=== PATIENT | male | born 1975 | race Caucasian/White ===

== ENCOUNTER 2019-07-04 00:20 | Day surgery (SDC) | payer OTHER, SELFPAY ==
[2019-07-01 10:09] VITALS: BMI 35.9
--- NOTE | 2019-07-04 07:17 | P.HP_ITS ---
History of Present Illness History of Present Illness Consent: Risks, benefits, and alternatives have been discussed and questions answered. Patient agrees to proceed with procedure. Chief complaint: Neoplasm Screening/ Fam Hx Colon Ca Narrative: Bryson Martínez is a 44 year old W male referred for screening colonoscopy secondary to family history of colon cancer in mother diagnosed in her 50s. Patient states he had a colonoscopy about 10 years ago for some rectal bleeding. Patient presently is asymptomatic. [facility] Past Medical History Medical History (Updated 05/27/19 @ 12:29 by Hayden Oconnor MD) Family history of colon cancer in mother Family hx of prostate cancer Hyperlipidemia Social History Social History Smoking status: Never smoker Second hand tobacco smoke exposure: No Alcohol intake: current Meds Home Medications and Allergies Home Medications Medication Instructions Recorded Confirmed Type No Home Medications 07/01/19 07/01/19 History Allergies Allergy/AdvReac Type Severity Reaction Status Date / Time No Known Allergies Allergy Verified 07/04/19 07:01 Exam Const: Orientation/consciousness: patient oriented x3 Resp: Auscultation: clear to auscultation bilaterally Cardio: Rate: regular rate Rhythm: regular rhythm Heart sounds: no murmurs GI: GI Palp: Yes Soft to palpation, No Tenderness to palpation present (GI), Yes No hepatosplenomegaly present and No Palpable mass present Auscultation: normal bowel sounds Neuro: General: patient oriented x3 and no focal motor deficits Extrem: General: no pedal edema Assessment and Plan Additional Plan Screening colonoscopy secondary mother having colon cancer in her 50s
[2019-07-04 07:22] VITALS: BP 155/108; PULSE 80; RESP 16; TEMP 36.6; O2SAT 96
[2019-07-04] MEDS: LACTATED RINGERS 1,000 ML 150 ML IV CONT (07:22)
--- NOTE | 2019-07-04 07:39 | WPDANESEPPF ---
Anes - Initial Pre Proc Eval Procedure: Operation Date: 07/04/19 08:30 Proposed Procedures p Screening Colonoscopy - Alexis Rosenberg MD Date/Time: 07/04/19 07:39 Surgeon: Alexis Rosenberg MD Pre Op Diagnosis: Neoplasm Screening/ Fam Hx Colon Ca Patient Data Age: 44 Gender: M Height: 5 ft 10 in Weight: 115.1 kg Last Vital Signs Temp 36.6 C 07/04/19 07:22 Pulse 80 07/04/19 07:22 Resp 16 07/04/19 07:22 BP 155/108 H 07/04/19 07:22 Pulse Ox 96 07/04/19 07:22 Allergies Allergy/AdvReac Type Severity Reaction Status Date / Time No Known Allergies Allergy Verified 07/04/19 07:01 Home Medications Medication Instructions Recorded Confirmed Type No Home Medications 07/01/19 07/01/19 History Patient hx anesthesia problems: none Family hx anesthesia problems: none PMFSH Past Medical History Medical History Family history of colon cancer in mother Family hx of prostate cancer Hyperlipidemia Family History Family History Sibling Patient's sister is in good health Mother Carcinoma of colon Father Malignant neoplasm of prostate Social History Social History Smoking status: Never smoker Second hand tobacco smoke exposure: No Alcohol intake: current Anes - Eval Final PreProcedure Day of Procedure 07/04/19 07:39 Patient weight: obese Heart: regular rate and rhythm Lungs: clear to auscultation Airway: Mallampati scale class 1 Neurological: alert and oriented Last oral intake: >/= 8 hours ASA classification: II Emergent: no Anesthetic plan: proceed Anesthesia type and monitoring: general GIVS and standard monitoring Informed Consent: The patient's anesthetic plan and its attendant risks and benefits were discussed with the patient/family/POA. Questions were solicited and answers provided to the satisfaction of the patient/family/POA.
[2019-07-04] MEDS: SODIUM CHLORIDE 0.9% 10 ML XX (09:38)
[2019-07-04 09:39] VITALS: BP 125/80; PULSE 76; RESP 20; O2SAT 96
[2019-07-04 09:49] VITALS: BP 131/88; PULSE 73; RESP 22; O2SAT 97
[2019-07-04 09:59] VITALS: BP 136/79; PULSE 71; RESP 20; O2SAT 98
== END 2019-07-04 10:21 | disposition home or self-care (01) ==
PROVIDERS: PCP Internal Medicine; Visit Provider Internal Medicine Gastroenterology
PROC: 0DJD8ZZ Inspection of Lower Intestinal Tract, Via Natural or Artificial Opening Endoscopic (ICD-10-PCS; CPT 45378; principal; 2019-07-04 08:30)
DX: Z12.11 Encounter for screening for malignant neoplasm of colon (principal); D12.2 Benign neoplasm of ascending colon; K64.8 Other hemorrhoids; E78.5 Hyperlipidemia, unspecified; E66.9 Obesity, unspecified; Z68.36 Body mass index [BMI] 36.0-36.9, adult
CPT/HCPCS: 45385; 45381; 88305; J2704; J7120

== ENCOUNTER 2021-07-16 08:14 | Outpatient (CLI) | payer OTHER, SELFPAY ==
--- NOTE | 2021-07-23 12:50 | WPDSLEEPSTUD ---
Sleep Study Date of Study: 07/16/21 Ordering Provider: Antoni Tang DO Interpreting Physician: Jeannie Belle DO Sleep Study Type: Split Polysomnogram Height: 1.78 m Weight: 131.542 kg Body Mass Index: 41.5 Neck Circumference (inches): 19 [place]: 18 Reason for Sleep Study Witnessed apneas, loud snoring Sleep History The patient is a 46-year-old male with hypertension that had a sleep study ordered by his primary care physician for witnessed apneas. The patient had an [place] Sleepiness Scale score of 20/24. The patient constantly awakens from sleep short of breath. He rarely awakens at night with heartburn, belching or cough. He constantly snores loud enough that others complain. He constantly has trouble sleeping when he has a cold. He constantly wakes up gasping for air throughout the night. He constantly has breathing problems at night observed by others. She he rarely sweats excessively at night. He occasionally notices heart palpitations or irregular heartbeats during the night. He frequently falls asleep during the day and frequently falls asleep while driving. He rarely has trouble at work due to sleepiness. He denies sleep paralysis and cataplexy. He rarely experiences vivid dreamlike scenes upon awakening or falling asleep. He denies having nightmares. He rarely feels sad or depressed. He rarely has anxiety. He occasionally notices parts of his body jerk. He denies kicking during the night. He denies having crawling and aching feelings in his legs as well as leg pain during the night. He rarely grinds his teeth during sleep rarely awakens with a morning jaw pain. He is frequently bothered by pain during the day but never awakened by pain during the night. He occasionally wakes up feeling stiff in the morning. He rarely wakes up with sore achy muscles. He frequently wakes up with pain in the neck, spine and other joints. He goes to bed at 2:00 a.m. on weekdays and 4:00 a.m. on the weekends. He can fall asleep immediately. He wakes up a couple times throughout the night to change positions and then he is able to fall back asleep immediately. He wakes up at 7:00 a.m. on the weekdays and 11:00 a.m. on the weekends. He typically gets 5 hours of sleep per night. He will stay in bed for 30 minutes after waking up in the morning. He currently lives with his and children. His work does require him to have split shifts or rotating shifts. He does not consume any caffeinated beverages within 2 hours of bedtime. He does not engage in physical exercise before bedtime. He will watch television before falling asleep. He will take naps in afternoon or the evening but they are not refreshing. He consumes 3 caffeinated beverages per day. He will drink alcohol socially. He denies tobacco and recreational drug use. [facility] Past Medical History Medical History (Updated 07/23/21 @ 13:20 by Jeannie Belle DO) Benign essential hypertension Family history of colon cancer in mother Family hx of prostate cancer Hyperlipidemia Family History Family History Sibling Patient's sister is in good health Mother Carcinoma of colon Father Malignant neoplasm of prostate Social History Social History Smoking status: Never smoker Second hand tobacco smoke exposure: No Alcohol intake: current Drinks per week: 6 Substance use: never Substance use type: does not use Spiritual care concerns: No Medications Home Medications Medication Instructions Recorded Confirmed Type amlodipine 5 mg tablet 5 mg PO DAILY #30 tablet 06/18/21 07/22/21 Rx losartan 100 1 tablet PO DAILY #30 tablet 06/18/21 07/22/21 Rx mg-hydrochlorothiazide 25 mg tablet Sleep Procedure This [facility] performed [facility] [employer] multiple channel system including EOG, EEG, submental EMG, EKG, nasal a
[2021-07-23 13:03] VITALS: BMI 41.5
== END 2021-07-17 05:38 | disposition home or self-care (01) ==
LOC: ANHCSM 08:15
PROVIDERS: PCP Family Medicine; Visit Provider Family Medicine
DX: G47.30 Sleep apnea, unspecified (principal); G47.39 Other sleep apnea
CPT/HCPCS: 95811

== ENCOUNTER 2021-07-26 00:47 | Day surgery (SDC) | payer OTHER, SELFPAY ==
[2021-07-22 10:59] VITALS: BMI 41.7
--- NOTE | 2021-07-25 16:29 | PM.HPGS ---
History of Present Illness History of Present Illness Consent: Risks, benefits, and alternatives have been discussed and questions answered. Patient agrees to proceed with procedure. Chief complaint: family hx of colon ca, hx of colon polyps Narrative: Bryson Martínez is a 46 year old male with a family history of colon cancer in his mother. He himself had removal of a 2.5 cm sessile polyp just over 2 years ago. Review of Systems Review of Systems: All systems reviewed & are unremarkable except as noted in HPI and below PMFSH Past Medical History Medical History Benign essential hypertension Family history of colon cancer in mother Family hx of prostate cancer Hyperlipidemia Mixed sleep apnea Family History Family History Sibling Patient's sister is in good health Mother Carcinoma of colon Father Malignant neoplasm of prostate Social History Social History Smoking status: Never smoker Second hand tobacco smoke exposure: No Alcohol intake: current Drinks per week: 6 Substance use: never Substance use type: does not use Living arrangements: with family Spiritual care concerns: No Meds Home Medications and Allergies Home Medications Medication Instructions Recorded Confirmed Type amlodipine 5 mg tablet 5 mg PO DAILY #30 tablet 06/18/21 07/26/21 Rx losartan 100 1 tablet PO DAILY #30 tablet 06/18/21 07/26/21 Rx mg-hydrochlorothiazide 25 mg tablet Allergies Allergy/AdvReac Type Severity Reaction Status Date / Time No Known Allergies Allergy Verified 07/26/21 11:08 Exam Resp: Auscultation: clear to auscultation bilaterally Cardio: Rate: regular rate Rhythm: regular rhythm GI: GI Palp: Yes Soft to palpation and No Tenderness to palpation present (GI) Assessment and Plan Assessment and plan (1) Colon cancer screening: Code(s): Z12.11 - Encounter for screening for malignant neoplasm of colon Status: Acute Assessment and Plan: Colonoscopy with possible biopsy or polypectomy or cautery or injection of substances.
[2021-07-26 11:11] VITALS: BP 149/103; PULSE 86; RESP 18; TEMP 36.3; O2SAT 100
[2021-07-26] MEDS: LACTATED RINGERS 1,000 ML 150 ML IV CONT (11:19)
--- NOTE | 2021-07-26 11:58 | P.PNAN_ITS ---
Anes - Initial Pre Proc Eval Procedure: Operation Date: 07/26/21 12:30 Proposed Procedures p Screening Colonoscopy - Conor Mora MD Date/Time: 07/26/21 11:58 Surgeon: Conor Mora MD Pre Op Diagnosis: family hx of colon ca, hx of colon polyps Patient Data Age: 46 Gender: M Height: 1.78 m Weight: 123.7 kg Last Vital Signs Temp 36.3 C L 07/26/21 11:11 Pulse 86 07/26/21 11:11 Resp 18 07/26/21 11:11 BP 149/103 H 07/26/21 11:11 Pulse Ox 100 07/26/21 11:11 Allergies Allergy/AdvReac Type Severity Reaction Status Date / Time No Known Allergies Allergy Verified 07/26/21 11:08 Home Medications Medication Instructions Recorded Confirmed Type amlodipine 5 mg tablet 5 mg PO DAILY #30 tablet 06/18/21 07/26/21 Rx losartan 100 1 tablet PO DAILY #30 tablet 06/18/21 07/26/21 Rx mg-hydrochlorothiazide 25 mg tablet Patient hx anesthesia problems: none Family hx anesthesia problems: none Results Review: All pre-operative results and documents have been reviewed as part of the pre-operative evaluation. [facility] Past Medical History Medical History Benign essential hypertension Family history of colon cancer in mother Family hx of prostate cancer Hyperlipidemia Mixed sleep apnea Family History Family History Sibling Patient's sister is in good health Mother Carcinoma of colon Father Malignant neoplasm of prostate Social History Social History Smoking status: Never smoker Second hand tobacco smoke exposure: No Alcohol intake: current Drinks per week: 6 Substance use: never Substance use type: does not use Living arrangements: with family Spiritual care concerns: No Anes - Eval Final PreProcedure Day of Procedure 07/26/21 11:58 Patient weight: obese Heart: regular rate and rhythm Lungs: clear to auscultation Airway: Mallampati scale class II Neurological: alert and oriented Last oral intake: >/= 8 hours ASA classification: III Emergent: no Anesthetic plan: proceed Anesthesia type and monitoring: general GIVS and standard monitoring Results Review: All pre-operative results and documents have been reviewed as part of the pre-operative evaluation. Informed Consent: The patient's anesthetic plan and its attendant risks and be nefits were discussed with the patient/family/POA. Questions were solicited and answers provided to the satisfaction of the patient/family/POA.
[2021-07-26 12:24] VITALS: BP 116/84; PULSE 93; RESP 27; O2SAT 100
[2021-07-26 12:34] VITALS: BP 133/97; PULSE 85; RESP 19; O2SAT 100
[2021-07-26 12:44] VITALS: BP 136/97; PULSE 80; RESP 20; O2SAT 100
== END 2021-07-26 13:00 | disposition home or self-care (01) ==
PROVIDERS: PCP Family Medicine; Visit Provider Internal Medicine Gastroenterology
PROC: 0DJD8ZZ Inspection of Lower Intestinal Tract, Via Natural or Artificial Opening Endoscopic (ICD-10-PCS; CPT 45378; principal; 2021-07-26 12:30)
DX: Z09 Encounter for follow-up examination after completed treatment for conditions other than malignant neoplasm (principal); D12.8 Benign neoplasm of rectum; Z80.0 Family history of malignant neoplasm of digestive organs; I10 Essential (primary) hypertension; E78.5 Hyperlipidemia, unspecified; G47.33 Obstructive sleep apnea (adult) (pediatric); E66.9 Obesity, unspecified; Z68.39 Body mass index [BMI] 39.0-39.9, adult
CPT/HCPCS: 45380; 88305; J2704; J7120

== ENCOUNTER 2023-06-11 08:40 | Outpatient (CLI) | payer OTHER, SELFPAY ==
[2023-06-11 17:34] LABS: Alanine Aminotransferase 57 U/L (6-50); Albumin Level 4.4 g/dL (3.5-5.1); Alkaline Phosphatase 62 U/L (38-126); Anion Gap 10 mmol/L (8-16); Aspartate Amino Transferase 57 U/L (17-59); Bilirubin,Total 0.9 mg/dL (0.2-1.3); Blood Urea Nitrogen 18 mg/dL (9-20); Calcium 9.4 mg/dL (8.4-10.2); Carbon Dioxide 28 mmol/L (22-30); Chloride 101 mmol/L (98-107); Cholesterol 146 mg/dL (0-200); Estimated Glomerular Filt Rate > 60; Glucose 82 mg/dL (65-110); HDL Direct 38 mg/dL; Potassium 3.6 mmol/L (3.4-5.0); Sodium 139 mmol/L (137-145); Triglycerides 90 mg/dL (<150)
[2023-06-11 17:48] LABS: LDL Cholesterol Direct 89 mg/dL
[2023-06-11 18:04] LABS: Prostate Specific Antigen 0.9 ng/mL (< OR = 4.0)
== END 2023-06-11 08:41 | disposition home or self-care (01) ==
LOC: ANHGOSHLAB 08:41
PROVIDERS: PCP Family Medicine; Visit Provider Family Medicine
DX: Z12.5 Encounter for screening for malignant neoplasm of prostate (principal); Z13.220 Encounter for screening for lipoid disorders; Z13.228 Encounter for screening for other metabolic disorders
CPT/HCPCS: 36415; 80053; 80061; 84153; G0103

== ENCOUNTER 2024-09-02 00:57 | Day surgery (SDC) | payer OTHER, SELFPAY ==
[2024-08-22 14:03] VITALS: BMI 41.7
--- NOTE | 2024-09-01 13:53 | WPDANESEPPF ---
Anes - Initial Pre Proc Eval Procedure: Operation Date: 09/02/24 11:30 Proposed Procedures p Screening Colonoscopy - Gregorio Wang MD Date/Time: 09/01/24 13:53 Surgeon: Gregorio Wang MD Pre Op Diagnosis: screening colon Patient Data Age: 49 Gender: M Height: 1.78 m Weight: 132 kg Allergies Allergy/AdvReac Type Severity Reaction Status Date / Time No Known Allergies Allergy Verified 09/02/24 10:11 Home Medications ?Medication ?Instructions ?Recorded ?Confirmed ?Type semaglutide (weight loss) 1.7 1.7 mg (0.75 mL) subcut WEEKLY #3 05/26/24 08/22/24 Rx mg/0.75 mL subcutaneous pen mL injector (Wegovy) amlodipine 10 mg tablet 10 mg PO DAILY #90 tabs 05/30/24 09/02/24 Rx losartan 100 1 tablet PO DAILY #90 tabs 05/30/24 09/02/24 Rx mg-hydrochlorothiazide 25 mg tablet metoprolol succinate 50 mg 50 mg PO DAILY #90 tabs 05/30/24 09/02/24 Rx tablet,extended release 24 hr semaglutide (weight loss) 2.4 2.4 mg (0.75 mL) subcut WEEKLY #3 05/30/24 08/22/24 Rx mg/0.75 mL subcutaneous pen mL injector (Wegovy) Patient hx anesthesia problems: none Family hx anesthesia problems: none Results Review: All pre-operative results and documents have been reviewed as part of the pre-operative evaluation. [facility] Past Medical History Medical History Mixed sleep apnea Hyperlipidemia Family history of colon cancer in mother Family hx of prostate cancer Benign essential hypertension Family History Family History Sibling Patient's sister is in good health Mother Carcinoma of colon Father Malignant neoplasm of prostate Social History Social History Smoking status: Never smoker Second hand tobacco smoke exposure: No Alcohol intake: never Drinks per week: 6 Substance use: never Substance use type: does not use Lack of Transportation: No Lack of Food: Never True Current Housing: I Have Housing Concerned About Future Housing: No Difficulty Paying Gas/Electric Bills: No Difficulty Paying for Meds: No Currently Unemployed: No Education: Bachelor's Degree Difficulty w/ Childcare or Family Care: No Living arrangements: with family Spiritual care concerns: No Anes - Eval Final PreProcedure Day of Procedure 09/01/24 13:53 Patient weight: morbidly obese Heart: regular rate and rhythm Lungs: clear to auscultation Airway: Mallampati scale class III Neurological: alert and oriented Last oral intake: >/= 8 hours ASA classification: III Emergent: no Anesthetic plan: proceed Anesthesia type and monitoring: general GIVS and standard monitoring Results Review: All pre-operative results and documents have been reviewed as part of the pre-operative evaluation. Informed Consent: The patient's anesthetic plan and its attendant risks and benefits were discussed with the patient/family/POA. Questions were solicited and answers provided to the satisfaction of the patient/family/POA.
--- OUTSIDE RECORDS SUMMARY | 2024-09-02 01:00 | XMS_ITS | Referral Summary ---
Author Organization [facility] Address [address] [place] [id number] Care Team Providers Care Tree Trimmer Name Role Phone ReddyAntoni gardner Primary Care Provider [phone] Allergies No known active allergies Social History Tobacco Use Types Packs/Day Years Used Date Smoking Tobacco: Never Assessed Personal Safety Answer Date Recorded Getting School Help Needed Not on file 08/15 Sex and Gender Information Value Date Recorded Sex Assigned at Not on file Legal Sex Male 7:13 PM [employer] Gender Identity Not on file Sexual Orientation Not on file Plan of Treatment Not on file Insurance [facility] Care Teams Tree Trimmer Relationship Specialty Start Date End Date Antoni Tang DO PCP - General Family Medicine 08/06/21
--- OUTSIDE RECORDS SUMMARY | 2024-09-02 01:00 | XMS_ITS | Clinical Summary ---
Author Organization [facility] Address [address] [place] [address] Phone Care Team Providers Care Scalp Treatment Specialist Name Role Phone Antoni Tang DO Primary Care Provider [phone] Allergies No known active allergies Medications amLODIPine (NORVASC) 10 mg tablet Take 10 mg by mouth daily. Active metoprolol tartrate (LOPRESSOR) 50 mg tablet Take 50 mg by mouth daily. Active losartan (COZAAR) 25 mg tablet Take 25 mg by mouth daily. Active ondansetron (ZOFRAN ODT) 4 mg Tablet, Rapid Dissolve Take 1 Tablet (4 mg) by mouth every 8 hours as needed for Nausea/Emesis . Dissolve tablet on top of tongue, then swallow with saliva. 8 Tablet 07/06/2024 Active Encounters Date Type Department Care Team Description 08/30/2024 External Device Data [facility] ABSTRACTION Provider, Abstract 08/09/2024 External Device Data [facility] ABSTRACTION Provider, Abstract 08/09/2024 External Device Data [facility] ABSTRACTION Provider, Abstract 08/08/2024 External Device Data [facility]STRACTION Provider, Abstract 08/03/2024 External Device Data [facility] ABSTRACTION Provider, Abstract 07/12/2024 External Device Data [facility] ABSTRACTION Provider, Abstract 07/12/2024 External Device Data [facility]STRACTION Provider, Abstract 07/12/2024 External Device Data [facility] ABSTRACTION Provider, Abstract 07/06/2024 5:37 AM LOADER OPERATOR/GROUND LEADER - 07/06/2024 10:27 AM [facility] Emergency [facility] Emergency Department [address] [place] [address] Siva Terrazas MD Acute gastritis without hemorrhage, unspecified gastritis type (Primary Dx) Discharge Disposition: Home or Self Care 07/06/2024 Travel 07/05/2024 External Device Data [facility] ABSTRACTION Provider, Abstract 07/05/2024 External Device Data [facility] ABSTRACTION Provider, Abstract 06/23/2024 External Device Data [facility] ABSTRACTION Provider, Abstract 06/14/2024 External Device Data [facility] ABSTRACTION Provider, Abstract 06/07/2024 External Device Data [facility] ABSTRACTION Provider, Abstract from Last 3 Months Social History Tobacco Use Types Packs/Day Years Used Date Smoking Tobacco: Never Tobacco Cessation:Counseling Given: Not Answered Alcohol Use Standard Drinks/Week Comments Yes 0 (1 standard drink = 0.6 oz pur e alcohol) ocassionally Feeling Safe Answer Date Recorded Are you in a relationship wi th someone who hurts you emotionally and/or physically? No 07/06/2024 Sex and Gender Information Value Date Recorded Sex Assigned at Not on file Legal Sex Male 5:04 AM LOADER OPERATOR/GROUND LEADER Gender Identity Not on file Sexual Orientation Not on file Last Filed Vital Signs Vital Sign Reading Time Taken Comments Blood Pressure 127/86 07/06/2024 8:42 AM LOADER OPERATOR/GROUND LEADER Pulse 81 07/06/2024 8:42 AM LOADER OPERATOR/GROUND LEADER Temperature 35.8 C (96.5 F) 07/06/2024 5:09 AM LOADER OPERATOR/GROUND LEADER Respiratory Rate 16 07/06/2024 5:09 AM LOADER OPERATOR/GROUND LEADER Oxygen Saturation 98% 07/06/2024 8:42 AM LOADER OPERATOR/GROUND LEADER Inhaled Oxygen Concentration - - Weight 136.1 kg (300 lb) 07/06/2024 5:09 AM LOADER OPERATOR/GROUND LEADER Height 180.3 cm (5' 11 ) 07/06/2024 5:09 AM LOADER OPERATOR/GROUND LEADER Body Mass Index 41.84 07/06/2024 5:09 AM LOADER OPERATOR/GROUND LEADER Plan of Treatment Health Maintenance Due Date Last Done Comments Pre-Diabetes and Diabetes Screening 1977 DTAP/TDAP/TD VACCINES (1 - Tdap) 01/07/1996 HEPATITIS B VACCINES (1 of 3 - 19+ 3-dose series) 12/1995 COLORECTAL SCREENING 2022 Colorectal Cancer Screening 2022 FIT-DNA Q 3 years 2022 FIT/FOBT Q 1 year 2022 Flex Sig/CT Colonography Q 5 years 2022 INFLUENZA VACCINE (#1) 2023 Preventative Visit- Commercial 06/01/2024 Procedures Procedure Name Priority Date/Time Associated Diagnosis Comments EXTRA TUBE (URINE BARRAGAN) Stat 07/06/2024 8:25 AM LOADER OPERATOR/GROUND LEADER URINALYSIS W/REFLEX MICROSCOPIC Stat 07/06/2024 8:25 AM LOADER OPERATOR/GROUND LEADER CT ABDOMEN PELVIS W CONTRAST Stat 07/06/2024 8:12 AM LOADER OPERATOR/GROUND LEADER EKG 12-LEAD Stat 07/06/2024 6:08 AM LOADER OPERATOR/GROUND LEADER MAGNESIUM LEVEL Stat 07/06/2024 5:53 AM LOADER OPERATOR/GROUND LEADER LIPASE Stat 07/06/2024 5:53 AM LOADER OPERATOR/GROUND LEADER COMPREHENSIVE METABOLIC PANEL Stat 07/06/2024 5:53 AM LOADER OPERATOR/GROUND LEADER CBC WITH DIFFERENTIAL Stat 07/06/2024 5:53 AM LOADER OPERATOR/GROUND LEADER from Last 3 Months Results * EXTRA TUBE (URINE BARRAGAN) (07/06/2024 8:25 AM LOADER OPERATOR/GROUND LEADER) Urine URINE SPECIMEN OBTAINED BY CLEAN CATCH PROCEDURE / Unknown Collection / Unknown 07/06/2024 8:25 AM LOADER OPERATOR/GROUND LEADER 07/06/2024 8:29 AM LOADER OPERATOR/GROUND LEADER us Siva Terrazas MD URINE ORDERABLES Final Res ult [facility] CLIA# [id number] [place] [address] * URINALYSIS WITH REFLEX MICROSCOPIC (07/06/2024 8:25 AM LOADER OPERATOR/GROUND LEADER) COLOR UA Yellow Pale to Dark Yellow 07/06/2024 8:35 AM LOADER OPERATOR/GROUND LEADER [facility] CLARITY UA Clear Clear 07/06/2024 8:35 AM LOADER OPERATOR/GROUND LEADER [facility] SPECIFIC GRAVITY UA 1.027 1.003 - 1.035 07/06/2024 8:35 AM LOADER OPERATOR/GROUND LEADER [facility] PH UA 6.0 5.0 - 8.0 07/06/2024 8:35 AM LOADER OPERATOR/GROUND LEADER [facility] LEUKOCYTE ESTERASE UA Negative Negative 07/06/2024 8:35 AM LOADER OPERATOR/GROUND LEADER [facility] NITRITE UA Negative Negative 07/06/2024 8:35 AM LOADER OPERATOR/GROUND LEADER [facility] PROTEIN UA Negative Negative 07/06/2024 8:35 AM LOADER OPERATOR/GROUND LEADER [facility] GLUCOSE UA Negative Negative 07/06/2024 8:35 AM LOADER OPERATOR/GROUND LEADER [facility] KETONES UA Negative Negative 07/06/2024 8:35 AM LOADER OPERATOR/GROUND LEADER [facility] UROBILINOGEN UA Normal <2.0 mg/dL 8:35 AM [facility] BILIRUBIN UA Negative Negative 07/06/2024 8:35 AM [facility] BLOOD UA Negative Negative 07/06/2024 8:35 AM LOADER OPERATOR/GROUND LEADER [facility] Urine URINE SPECIMEN OBTAINED BY CLEAN CATCH PROCEDURE / Unknown Collection / Unknown 07/06/2024 8:25 AM LOADER OPERATOR/GROUND LEADER 07/06/2024 8:29 AM LOADER OPERATOR/GROUND LEADER Siva Terrazas MD URINE ORDERABLES Final Res ult [facility] CLIA# [id number] [place] [address] * CT ABDOMEN PELVIS W CONTRAST (07/06/2024 8:12 AM LOADER OPERATOR/GROUND LEADER) Anatomical Region Laterality Modality Abdomen Computed Tomogra y 07/06/2024 8:18 AM LOADER OPERATOR/GROUND LEADER Impressions 07/06/2024 8:28 AM LOADER OPERATOR/GROUND LEADER IMPRESSION: 1. Mild distal esophagitis and peripyloric gastritis without definite ulceration. 2. Hepatic steatosis. DICTATION LOCATION: Location 7 - [facility] Narrative 07/06/2024 8:28 AM LOADER OPERATOR/GROUND LEADER EXAMINATION: CT ABDOMEN PELVIS W CONTRAST DATE: 07/06/2024 8:12 AM HISTORY: Abdominal pain, acute, nonlocalized; See Reason for Exam TECHNIQUE: CT of the abdomen and pelvis was performed following the uneventful administration of contrast (IOPAMIDOL 76 % INTRAVENOUS SOLUTION (SINGLE USE VIAL) Given:75 mL) according to standard protocol. The examination was performed with the adjustment of mA according to the patient size and/or the use of Iterative Reconstruction Technique. COMPARISON: No prior study is available for comparison at the time of this dictation. FINDINGS: Lower chest: The lung bases are clear. The heart is not enlarged. Liver: Diffuse hepatic steatosis is present. -Focal liver lesions: No focal liver lesion. -Vasculature: Patent hepatic vasculature. Biliary: The gallbladder appears normal. There is no biliary duct dilatation. Spleen: Normal. Pancreas: Normal. Adrenals: Normal. Kidneys/: Normal. There is no hydronephrosis. Gastrointestinal: There is mild thickening and fat stranding surrounding the distal esophagus suggestive of esophagitis. The stomach also demonstrates wall thickening and fat stranding surrounding the pylorus compatible with gastritis. No definite ulceration is identified. There is no bowel wall thickening or dilatation. Vasculature: The aorta is normal in course and caliber without significant atherosclerosis. The aortic branch vessels are normal in course and caliber without significant atherosclerotic calcification. Pelvic structures: The urinary bladder is unremarkable. The visible reproductive structures are normal. Other: There is no free fluid. There is no free air. There is no abdominal lymphadenopathy. No suspicious bone lesion is seen. No acute fracture is identified. Procedure Note Mars Matthews MD - 07/06/2024 EXAMINATION: CT ABDOMEN PELVIS W CONTRAST DATE: 07/06/2024 8:12 AM HISTORY: Abdominal pain, acute, nonlocalized; See Reason for Exam TECHNIQUE: CT of the abdomen and pelvis was performed following the uneventful administration of contrast (IOPAMIDOL 76 % INTRAVENOUS SOLUTION (SINGLE USE VIAL) Given:75 mL) according to standard protocol. The examination was performed with the adjustment of mA according to the patient size and/or the use of Iterative Reconstruction Technique. COMPARISON: No prior study is available for comparison at the time of this dictation. FINDINGS: Lower chest: The lung bases are clear. The heart is not enlarged. Liver: Diffuse hepatic steatosis is present. -Focal liver lesions: No focal liver lesion. -Vasculature: Patent hepatic vasculature. Biliary: The gallbladder appears normal. There is no biliary duct dilatation. Spleen: Normal. Pancreas: Normal. Adrenals: Normal. Kidneys/: Normal. There is no hydronephrosis. Gastrointestinal: There is mild thickening and fat stranding surrounding the distal esophagus suggestive of esophagitis. The stomach also demonstrates wall thickening and fat stranding surrounding the pylorus compatible with gastritis. No definite ulceration is identified. There is no bowel wall thickening or dilatation. Vasculature: The aorta is normal in course and caliber without significant atherosclerosis. The aortic branch vessels are normal in course and caliber without significant atherosclerotic calcification. Pelvic structures: The urinary bladder is unremarkable. The visible reproductive structures are normal. Other: There is no free fluid. There is no free air. There is no abdominal lymphadenopathy. No suspicious bone lesion is seen. No acute fracture is identified. IMPRESSION: 1. Mild distal esophagitis and peripyloric gastritis without definite ulceration. 2. Hepatic steatosis. DICTATION LOCATION: [address] us Siva Terrazas MD CT ORDERABLES Final Resu lt * EKG 12-LEAD (07/06/2024 6:08 AM LOADER OPERATOR/GROUND LEADER) 07/06/2024 6:08 AM LOADER OPERATOR/GROUND LEADER Narrative INTERFACE SYSTEM - 07/06/2024 9:20 AM LOADER OPERATOR/[place] [address] Test Date: 2024-07-06 Pat Name: BRYSON MARTÍNEZ Department: 91 Room: [address] [place] [address] Gender: Male Neurology Physician: : [id number] Requested By: Order Number: [id number] Reading MD: Tip Bermeo Measurements Intervals [place] Rate: 89 P: 46 AL: 192 QRS: 27 QRSD: 92 T: 40 QT: 358 QTc: 435 Interpretive Statements Normal sinus rhythm Poor R wave progression Borderline ECG Compared to ECG 12/09/2023 15:01:21 No significant changes Electronically Signed On 07-06-2024 9:20:40 LOADER OPERATOR/GROUND LEADER by Tip Bermeo Procedure Note Tip Bermeo MD - 07/06/[address] [address] Test Date: 2024-07-06 Pat Name: BRYSON MARTÍNEZ Department: 91 Room: [address] [place] [address] Gender: Male Neurology Physician: : [id number] Requested By: Order Number: [id number] Reading MD: Tip Bermeo Measurements Intervals [place] Rate: 89 P: 46 AL: 192 QRS: 27 QRSD: 92 T: 40 QT: 358 QTc: 435 Interpretive Statements Normal sinus rhythm Poor R wave progression Borderline ECG Compared to ECG 12/09/2023 15:01:21 No significant changes Electronically Signed On 07-06-2024 9:20:40 LOADER OPERATOR/GROUND LEADER by iTp Bermeo us Solomon Russ MD ECG ORDERABLES Final Result INTERFACE SYSTEM Refer to clinic/hospital department * (ABNORMAL) CBC WITH DIFFERENTIAL (07/06/2024 5:53 AM LOADER OPERATOR/GROUND LEADER) WBC 8.8 4.0 - 9.8 K/uL 07/06/2024 7:03 AM [facility] RBC 5.54(H) 4.50 - 5.40 M/uL 07/06/2024 7:03 AM [facility] HEMOGLOBIN 16.2 13.6 - 16.5 g/dL 07/06/2024 7:03 AM [facility] HEMATOCRIT 45.8 40.0 - 48.0 % 07/06/2024 7:03 AM [facility] MCV 82.7 82.0 - 99.0 fL 07/06/2024 7:03 AM [facility] MCH 29.2 27.2 - 32.6 pg 07/06/2024 7:03 AM [facility] MCHC 35.4 31.5 - 35.5 g/dL 07/06/2024 7:03 AM [facility] RDW 12.2 11.5 - 14.5 % 07/06/2024 7:03 AM [facility] RDW-STDEV 36.9(L) 37.1 - 48.7 fL 07/06/2024 7:03 AM [facility] PLATELETS 190 140 - 350 K/uL 07/06/2024 7:03 AM [facility] MPV 11.0 9.3 - 12.4 fL 07/06/2024 7:03 AM [facility] NEUTROPHILS 75 % 07/06/2024 7:03 AM [facility] LYMPHOCYTES 11 % 07/06/2024 7:03 AM [facility] MONOCYTES 8 % 07/06/2024 7:03 AM LOADER OPERATOR/GROUND LEADER [facility] EOSINOPHILS 5 % 07/06/2024 7:03 AM LOADER OPERATOR/GROUND LEADER [facility] BASOPHILS 0 % 07/06/2024 7:03 AM LOADER OPERATOR/GROUND LEADER [facility] IMMATURE GRANULOCYTES 0 % 07/06/2024 7:03 AM [facility] NEUTROPHIL ABSOLUTE 6.60 1.90 - 7.00 K/uL 07/06/2024 7:03 AM [facility] LYMPHOCYTE ABSOLUTE 1.00 0.70 - 4.50 K/uL 07/06/2024 7:03 AM LOADER OPERATOR/GROUND LEADER [facility] MONOCYTE ABSOLUTE 0.74 0.10 - 1.30 K/uL 07/06/2024 7:03 AM LOADER OPERATOR/GROUND LEADER [facility] EOSINOPHIL ABSOLUTE 0.45 0.00 - 0.70 K/uL 07/06/2024 7:03 AM [facility] BASOPHILS ABSOLUTE 0.03 0.00 - 0.20 K/uL 07/06/2024 7:03 AM [facility] IMMATURE GRANULOCYTES ABSOLUTE 0.02 0.00 - 0.03 K/uL 07/06/2024 7:03 AM [facility] Blood Venipuncture / Unknown 07/06/2024 5:53 AM LOADER OPERATOR/GROUND LEADER 07/06/2024 5:59 AM LOADER OPERATOR/GROUND LEADER us Solomon Russ MD HEMATOLOGY ORDERABLES Final Res ult [facility] CLIA# [id number] [address] [place] [address] * MAGNESIUM LEVEL (07/06/2024 5:53 AM LOADER OPERATOR/GROUND LEADER) MAGNESIUM 1.7 1.6 - 2.6 mg/dL 07/06/2024 7:13 AM LOADER OPERATOR/GROUND LEADER [facility] Blood Venipuncture / Unknown 07/06/2024 5:53 AM LOADER OPERATOR/GROUND LEADER 07/06/2024 6:06 AM LOADER OPERATOR/GROUND LEADER Siva Terrazas MD CHEMISTRY ORDERABLES Final Result Performing Organization Address City/[facility]/ZIP Co de Phone Number [facility] CLIA# [id number] [place] [address] * LIPASE (07/06/2024 5:53 AM LOADER OPERATOR/GROUND LEADER) LIPASE 46 13 - 60 U/L 07/06/2024 6:35 AM LOADER OPERATOR/GROUND LEADER [facility] Blood Venipuncture / Unknown 07/06/2024 5:53 AM LOADER OPERATOR/GROUND LEADER 07/06/2024 6:06 AM LOADER OPERATOR/GROUND LEADER Solomon Russ MD CHEMISTRY ORDERABLES Final Resu lt Performing Organization Address City/[facility]/ZIP Co de Phone Number [id number] [place] [address] * (ABNORMAL) COMPREHENSIVE METABOLIC PANEL (07/06/2024 5:53 AM LOADER OPERATOR/GROUND LEADER) SODIUM 137 136 - 145 mmol/L 07/06/2024 7:13 AM LOADER OPERATOR/GROUND LEADER [facility] POTASSIUM 3.6 3.4 - 5.1 mmol/L 07/06/2024 7:13 AM LOADER OPERATOR/GROUND LEADER [facility] CHLORIDE 103 98 - 107 mmol/L 07/06/2024 7:13 AM LOADER OPERATOR/GROUND LEADER [facility] CO2 22 22 - 29 mmol/L 07/06/2024 7:13 AM [facility] CALCIUM 9.4 8.6 - 10.4 mg/dL 07/06/2024 7:13 AM [facility] BUN 17 6 - 20 mg/dL 07/06/2024 7:13 AM [facility] CREATININE 1.05 0.67 - 1.17 mg/dL 07/06/2024 7:13 AM [facility] GLUCOSE 139(H) 74 - 99 mg/dL 07/06/2024 7:13 AM [facility] TOTAL PROTEIN 6.8 6.3 - 8.7 g/dL 07/06/2024 7:13 AM [facility] ALBUMIN 4.3 3.5 - 5.2 g/dL 07/06/2024 7:13 AM [facility] BILIRUBIN TOTAL 0.4 0.3 - 1.2 mg/dL 07/06/2024 7:13 AM [facility] ALKALINE PHOSPHATASE 69 40 - 150 U/L 07/06/2024 7:13 AM [facility] AST 30 0 - 41 U/L 07/06/2024 7:13 AM [facility] ALT 39 0 - 41 U/L 07/06/2024 7:13 AM [facility] GFR >60 >=60 mL/min/1.7 3 sq meter 07/06/2024 7:13 AM [facility] Comment:eGFR calculated with 2020 CKD-EPI equation. Vegetarian diet, extremely high or low muscle mass, and may affect results. Cystatin C with Glomerular Filtration Rate is a suitable alternative for these patients. ANION GAP 12 8 - 16 mmol/L 07/06/2024 7:13 AM [facility] Blood Venipuncture / Unknown 07/06/2024 5:53 AM LOADER OPERATOR/GROUND LEADER 07/06/2024 6:06 AM LOADER OPERATOR/GROUND LEADER us Solomon Russ MD CHEMISTRY ORDERABLES Final Resu lt [facility] CLIA# [id number] [address] [place] [address] from Last 3 Months Insurance AETNA HMO AET[employer] OPEN CHOICE PPO Care Teams Scalp Treatment Specialist Relationship Specialty Start Date End Date Antoni Tang DO [address] [address] PCP - General Family Practice 12/09/23
--- OUTSIDE RECORDS SUMMARY | 2024-09-02 01:00 | XMS_ITS | Encounter Summary ---
Author Organization [facility] Address [address] [facility] Attn: Epic Prelude ADT [place] [address] Care Team Providers Care Rock Star Name Role Phone Antoni Tang DO Primary Care Provider [phone] Encounter Details Date Type Department Care Team ([facility] st Contact Info) Description 03/20/1989 Outpatient Historical Conversion, History Social History Tobacco Use Types Packs/Day Years Used Date Smoking Tobacco: Never Assessed Sex and Gender Information Value Date Recorded Sex Assigned at Not on file Legal Sex Male 5:04 AM CIGARETTE MAKING EXAMINER Gender Identity Not on file Sexual Orientation Not on file documented as of this encounter Plan of Treatment Not on file documented as of this encounter Visit Diagnoses Not on filedocumented in this encounter Care Teams Rock Star Relationship Specialty Start Date End Date Antoni Tang DO [address] [phone] PCP - General Family Practice 12/09/23 documented as of this encounter
--- OUTSIDE RECORDS SUMMARY | 2024-09-02 01:00 | XMS_ITS | Clinical Summary ---
Author Organization [facility] Address [address] [place] [phone] Care Team Providers Care Core Filer Name Role Phone Antoni Tang Primary Care Provider [phone] Allergies No known active allergies Social History Tobacco Use Types Packs/Day Years Used Date Smoking Tobacco: Never Assessed Personal Safety Answer Date Recorded Getting School Help Needed Not on file 08/15 Sex and Gender Information Value Date Recorded Sex Assigned at Not on file Legal Sex Male 7:13 PM REHAB TECH Gender Identity Not on file Sexual Orientation Not on file Plan of Treatment Health Maintenance Due Date Last Done Comments Colon Cancer Screening-Colonoscopy 1975 Depression Screening 1975 Hepatitis C Screening 1975 DTaP/Tdap/Td Vaccine (1 - Tdap) 01/07/1988 Hepatitis B Screening 1995 Regular Well Visit/Exam 18-64 1995 Covid-19 Vaccine (3 2023-2 5 season) 2024 06/06/2021, 08/06/2020 Influenza Vaccine (#1) 2024 Pneumococcal vaccine <65 Aged Out No longer eligible based on patient's age to complete this topic Insurance [facility] Care Teams Core Filer Relationship Specialty Start Date End Date Antoni Tang DO PCP - General Family Medicine 08/06/21
[2024-09-02 10:12] VITALS: BP 139/89; PULSE 75; RESP 18; TEMP 36.1; O2SAT 99
[2024-09-02] MEDS: LACTATED RINGERS 1,000 ML 150 ML IV CONT (10:20)
--- NOTE | 2024-09-02 10:34 | PM.IMHP ---
H&P: HPI History of Present Illness Date/Time: 09/02/24 10:34 Chief Complaint: Family history of colon cancer Narrative: This patient has family history of colorectal cancer. his mother had colon cancer at age 40. This is his 4th colonoscopy. No history of polyps. Review of Systems Review of Systems: All systems reviewed & are unremarkable except as noted in HPI and below PMFSH Past Medical History Medical History Mixed sleep apnea Hyperlipidemia Family history of colon cancer in mother Family hx of prostate cancer Benign essential hypertension Family History Family History Sibling Patient's sister is in good health Mother Carcinoma of colon Father Malignant neoplasm of prostate Social History Social History Smoking status: Never smoker Second hand tobacco smoke exposure: No Alcohol intake: never Drinks per week: 6 Substance use: never Substance use type: does not use Lack of Transportation: No Lack of Food: Never True Current Housing: I Have Housing Concerned About Future Housing: No Difficulty Paying Gas/Electric Bills: No Difficulty Paying for Meds: No Currently Unemployed: No Education: Bachelor's Degree Difficulty w/ Childcare or Family Care: No Living arrangements: with family Spiritual care concerns: No Meds Home Medications and Allergies Home Medications ?Medication ?Instructions ?Recorded ?Confirmed ?Type semaglutide (weight loss) 1.7 1.7 mg (0.75 mL) subcut WEEKLY #3 05/26/24 08/22/24 Rx mg/0.75 mL subcutaneous pen mL injector (Rosalesgovy) amlodipine 10 mg tablet 10 mg PO DAILY #90 tabs 05/30/24 09/02/24 Rx losartan 100 1 tablet PO DAILY #90 tabs 05/30/24 09/02/24 Rx mg-hydrochlorothiazide 25 mg tablet metoprolol succinate 50 mg 50 mg PO DAILY #90 tabs 05/30/24 09/02/24 Rx tablet,extended release 24 hr semaglutide (weight loss) 2.4 2.4 mg (0.75 mL) subcut WEEKLY #3 05/30/24 08/22/24 Rx mg/0.75 mL subcutaneous pen mL injector (Wegovy) Allergies Allergy/AdvReac Type Severity Reaction Status Date / Time No Known Allergies Allergy Verified 09/02/24 10:11 Vital Signs Vital Signs - 24 hr 09/02/24 10:12 Temperature 97 F L Pulse Rate 75 Respiratory Rate 18 Blood Pressure 139/89 Pulse Oximetry 99 Oxygen Delivery Room Air Exam Const: General: cooperative and healthy appearing Resp: Effort & Inspection: normal respiratory effort and able to speak in complete sentences Auscultation: clear to auscultation bilaterally Cardio: Rate: regular rate Rhythm: regular rhythm GI: Inspection: normal to inspection GI Palp: No No hepatosplenomegaly present Auscultation: normal bowel sounds Rectal Exam: deferred Skin: General skin exam: normal color Psych: Appearance: grossly normal Mental Status: mental status grossly normal Assessment and Plan Assessment and plan (1) Family history of colon cancer in mother: Code(s): Z80.0 - Family history of malignant neoplasm of digestive organs Status: Acute Assessment and Plan: The patient is deemed a good candidate for the procedure. Consent signed. Will proceed.
[2024-09-02 11:06] VITALS: BP 121/74; PULSE 85; RESP 20; O2SAT 97
[2024-09-02 11:16] VITALS: BP 124/76; PULSE 84; RESP 19; O2SAT 98
[2024-09-02 11:26] VITALS: BP 119/77; PULSE 76; RESP 19; O2SAT 98
== END 2024-09-02 11:48 | disposition home or self-care (01) ==
PROVIDERS: Visit Provider Internal Medicine Gastroenterology
PROC: 0DJD8ZZ Inspection of Lower Intestinal Tract, Via Natural or Artificial Opening Endoscopic (ICD-10-PCS; CPT 45378; principal; 2024-09-02 11:30)
DX: Z12.11 Encounter for screening for malignant neoplasm of colon (principal); D12.3 Benign neoplasm of transverse colon; D12.5 Benign neoplasm of sigmoid colon; K63.5 Polyp of colon; Z80.0 Family history of malignant neoplasm of digestive organs; E66.01 Morbid (severe) obesity due to excess calories; Z68.41 Body mass index [BMI] 40.0-44.9, adult
CPT/HCPCS: 45385; 88305; J7120

== ENCOUNTER 2024-11-24 08:45 | Outpatient (CLI) | payer OTHER, SELFPAY ==
[2024-11-24 12:41] LABS: Basophils Percent Auto 0.3 % (0.2-1.2); Eosinophils Absolute Auto 0.3 K/mm3 (0-0.3); Eosinophils Percent Auto 3.6 % (0-4.4); Hemoglobin 15.6 g/dL (14.0-18.0); Immature Granulocyte Absolute 0.02 K/mm3 (0.00-0.031); Immature Granulocyte Percent A 0.3 % (0-0.5); Lymphocytes Percent Auto 21.5 % (18.3-44.2); Mean Corpuscular HGB Conc 33.9 g/dl (32-36); Mean Corpuscular Hemoglobin 28.9 pg (26-34); Mean Corpuscular Volume 85.3 fl (80-100); Mean Platelet Volume 11.3 fl (7.4-10.4); Monocytes Absolute Auto 0.7 K/mm3 (0.1-0.6); Monocytes Percent Auto 10.2 % (2.6-8.5); Neutrophils Absolute Auto 4.5 K/mm3 (1.3-6.7); Neutrophils Percent Auto 64.1 % (45.5-73.1); Platelet Count Result 202 k/mm3 (150-375); Red Blood Count 5.39 M/mm3 (4.6-6.20); Red Cell Distribution Width 13.1 % (11.5-14.5)
[2024-11-24 12:50] LABS: Alanine Aminotransferase 44 U/L (6-50); Albumin Level 4.5 g/dL (3.5-5.1); Alkaline Phosphatase 61 U/L (38-126); Anion Gap 9 mmol/L (4-12); Aspartate Amino Transferase 53 U/L (17-59); Bilirubin,Total 0.5 mg/dL (0.2-1.3); Blood Urea Nitrogen 20 mg/dL (9-20); Calcium 9.5 mg/dL (8.4-10.2); Carbon Dioxide 28 mmol/L (22-30); Chloride 103 mmol/L (98-107); Cholesterol 138 mg/dL (0-200); Estimated Glomerular Filt Rate > 60; Glucose 101 mg/dL (65-110); HDL Direct 43 mg/dL; Potassium 3.8 mmol/L (3.4-5.0); Sodium 140 mmol/L (137-145); Total Protein 7.7 g/dL (6.3-8.2); Triglycerides 97 mg/dL (<150)
[2024-11-24 13:03] LABS: LDL Cholesterol Direct 68 mg/dL
[2024-11-24 13:25] LABS: Prostate Specific Antigen 0.9 ng/mL (< OR = 4.0)
== END 2024-11-24 08:46 | disposition home or self-care (01) ==
LOC: ANHGOSHLAB 08:46
PROVIDERS: PCP Nurse Practitioner; Visit Provider Nurse Practitioner
DX: E78.5 Hyperlipidemia, unspecified (principal); I10 Essential (primary) hypertension; Z12.5 Encounter for screening for malignant neoplasm of prostate
CPT/HCPCS: 36415; 80053; 80061; 84153; 85025; G0103